=== PATIENT | female | born 1985 | race Caucasian/White ===

== ENCOUNTER → 2017-05-08 | Outpatient (CLI) | payer BC ==
--- NOTE | 2017-05-08 14:13 | US ---
EXAMINATION TYPE: US transvaginal DATE OF EXAM: 05/08/2017 COMPARISON: OB US 2012 CLINICAL HISTORY: N94.6 DYSMENORRHEA, N52.6. Patient c/o midline pelvic pain with intercourse x 6 mon ths: TECHNIQUE: Transvaginal (TV) Date of LMP: 04/09/2017 EXAM MEASUREMENTS: Uterus: 9.2 x 6.0 x 4.8 cm Endometrial Stripe: 2.0 cm Right Ovary: 3.2 x 2.6 x 2.0 cm Left Ovary: 2.6 x 1.9 x 1.3 cm 1. Uterus: Anteverted 2. Endometrium: thickness is wnl for day 30LMP 3. Right Ovary: multiple follicles with largest as complex involuting cyst = 1.6 x 1.1 x 2.2cm 4. Left Ovary: multiple small follicles Spectral, color and waveform Doppler imaging shows good arterial and venous flow within the ovaries . 5. Bilateral Adnexa: wnl 6. Posterior cul-de-sac: wnl Uterus is heterogeneous in appearance. Endometrium is thickened up to 20 mm near the fundus which is abnormal even for late secretory phase of menstrual cycle. No free fluid is seen in pelvis. Both ovaries are identified. Multiple peripheral follicles are seen. No concerning extraovarian adnex al masses are present. IMPRESSION: Abnormal thickening of endometrium consider hyperplasia or polyp. Consider further invest igation with short-term ultrasound follow-up or saline infused hysterosonogram evaluation.
== END | disposition home or self-care (01) ==
LOC: RADUSWWP 12:43
PROVIDERS: ATTEND Family Medicine
DX: R93.8 Abnormal findings on diagnostic imaging of other specified body structures (principal)
CPT/HCPCS: 76830

== ENCOUNTER → 2018-10-25 | Outpatient (CLI) | payer BC ==
--- NOTE | 2018-10-31 09:02 | USB ---
Reason for exam: follow-up at short interval from prior study. History: Family history of breast cancer in paternal grandmother at age 40. Physical Findings: Nurse did not find any significant physical abnormalities on exam. US Breast RT Right complete breast ultrasound includes all four quadrants, the retroareolar region and axilla. Finding demonstrates a 0.5 x 0.5 x 0.5cm mixed lesion at 12 o'clock possible complicated cyst for which a 6 month follow up is recommended, a 0.5 x 0.3 x 0.4cm cystic lesion at 7 o'clock but now slighly irregular, previously 4 x 3 x 4mm, additional 6 month follow up recommended and a 0.8 x 0.3 x 0.7cm cystic, benign lesion at 8 o'clock. These results were verbally communicated with the patient and result sheet given to the patient on 10/30/18. ASSESSMENT: Probably benign, BI-RAD 3 RECOMMENDATION: Ultrasound of the right breast in 6 months.
== END | disposition home or self-care (01) ==
LOC: RADMAMWWP 07:41
PROVIDERS: ATTEND Family Medicine
DX: R92.8 Other abnormal and inconclusive findings on diagnostic imaging of breast (principal)

== ENCOUNTER → 2019-02-14 | Outpatient (CLI) | payer BC ==
--- NOTE | 2019-02-18 08:06 | USB ---
Reason for exam: clinical finding. History: Family history of breast cancer in paternal grandmother at age 40. Physical Findings: Nurse did not find any significant physical abnormalities on exam. US Breast RT Right complete breast ultrasound includes all four quadrants, the retroareolar region and axilla. Finding demonstrates three cystic, benign lesions measuring 0.3 x 0.2 x 0.2cm at 12 o'clock, 0.6 x 0.6 x 0.4cm at 7 o'clock and 0.6 x 1.0 x 0.4cm at 8 o'clock. These results were verbally communicated with the patient and result sheet given to the patient on 02/14/19. ASSESSMENT: Benign, BI-RAD 2 RECOMMENDATION: Routine screening mammogram of both breasts at age 40. (or sooner if clinically indicated)
== END | disposition home or self-care (01) ==
LOC: RADUSWWP 14:25
PROVIDERS: ATTEND Family Medicine
DX: N63.10 Unspecified lump in the right breast, unspecified quadrant (principal)

== ENCOUNTER 2021-01-12 12:05 | Emergency (ER) | payer BC ==
[2021-01-12 12:14] VITALS: RESP 16
[2021-01-12] MEDS ORDERED: SODIUM CHLORIDE 0.9% 1,000 ML IV STA (12:18)
--- NOTE | 2021-01-12 12:19 | ED ---
Abdominal Pain HPI - General Chief Complaint: Abdominal Pain Stated Complaint: Abd Pain Time Seen by Provider: 01/12/21 12:10 Source: patient Mode of arrival: EMS Limitations: no limitations - History of Present Illness Initial Comments: 35-year-old previously healthy female who presents to emergency room with reported abdominal pain. Patient did have some abdominal pain approximately one week ago however it did not last very long. Reports that the pain started again today around 10 AM. Denies any provocative factors. Located periumbilical and in the right lower quadrant. Denies previous history of abdominal surgeries. No changes in her urination to include dysuria, hematuria or difficulty voiding. No melanic stools or hematochezia. No constipation or diarrhea. Last menstrual cycle was on December 31. Denies concern for . No abnormal vaginal bleeding or discharge. Pain does radiate through to back. Did not take any medications for her symptoms. Does admit to nausea. Did have some vomiting a week ago. No sick contacts. No other alleviating, precipitating or modifying factors - Related Data Allergies Allergy/AdvReac Type Severity Reaction Status Date / Time sulfamethoxazole Allergy Rash/Hives Verified 01/12/21 12:14 [From Bactrim] trimethoprim [From Bactrim] Allergy Rash/Hives Verified 01/12/21 12:14 Review of Systems ROS Statement: Those systems with pertinent positive or pertinent negative responses have been documented in the HPI. ROS Other: All systems not noted in ROS Statement are negative. Past Medical History Past Medical History: No Reported History History of Any Multi-Drug Resistant Organisms: None Reported Past Surgical History: No Surgical Hx Reported Past Psychological History: No Psychological Hx Reported Smoking Status: Never smoker Past Alcohol Use History: Occasional Past Drug Use History: None Reported General Exam Limitations: no limitations General appearance: alert, in no apparent distress Head exam: Present: atraumatic, normocephalic, normal inspection Eye exam: Present: normal appearance, PERRL, EOMI. Absent: scleral icterus, conjunctival injection, periorbital swelling ENT exam: Present: normal exam, mucous membranes moist Neck exam: Present: normal inspection. Absent: tenderness, meningismus, lymphadenopathy Respiratory exam: Present: normal lung sounds bilaterally. Absent: respiratory distress, wheezes, rales, rhonchi, stridor Cardiovascular Exam: Present: regular rate, normal rhythm, normal heart sounds. Absent: systolic murmur, diastolic murmur, rubs, gallop, clicks GI/Abdominal exam: Present: soft, tenderness (right lower quadrant), normal bowel sounds. Absent: distended, guarding, rebound, rigid Extremities exam: Present: normal inspection, full ROM, normal capillary refill. Absent: tenderness, pedal edema, joint swelling, calf tenderness Back exam: Present: normal inspection Neurological exam: Present: alert, oriented X3, CN II-XII intact Psychiatric exam: Present: normal affect, normal mood Skin exam: Present: warm, dry, intact, normal color. Absent: rash Course Vital Signs 01/12/21 01/12/21 01/12/21 12:08 12:23 14:45 Temperature 97.1 F L 97.5 F L Pulse Rate 72 72 Respiratory 16 16 Rate Blood Pressure 129/88 117/63 O2 Sat by Pulse 100 98 Oximetry Medical Decision Making - Medical Decision Making Upon arrival patient is placed in room 16. A thorough history and physical exam is performed. Patient reports minimal pain at this time. I did recommend laboratory studies and a CT of her abdomen and pelvis. Laboratory studies are reviewed and are all within normal range. Trace blood in the urine. CT of abdomen and pelvis does demonstrate multiple renal calculi bilaterally. The patient also has a 2.7 cm right ovarian cyst. These results are discussed with the patient. I did offer pelvic ultrasound however patient refused at this time. Patient will be discharged home to follow up with PCP within 2-4 days. Did further recommend testing to include vaginal us, gallbladder us and HIDA scan if pain persists. Return to the emergency room for any new or worsening symptoms. Patient was discharged home in stable condition - Lab Data Result diagrams: 01/12/21 12:24 01/12/21 12:24 Lab Results 01/12/21 01/12/21 01/12/21 Range/Units 12:24 12:24 12:24 WBC 9.2 (3.8-10.6) k/uL RBC 4.62 (3.80-5.40) m/uL Hgb 14.0 (11.4-16.0) gm/dL Hct 41.5 (34.0-46.0) % MCV 89.9 (80.0-100.0) fL MCH 30.4 (25.0-35.0) pg MCHC 33.8 (31.0-37.0) g/dL RDW 12.2 (11.5-15.5) % Plt Count 212 (150-450) k/uL MPV 8.1 Neutrophils % 77 % Lymphocytes % 14 % Monocytes % 6 % Eosinophils % 2 % Basophils % 0 % Neutrophils # 7.1 (1.3-7.7) k/uL Lymphocytes # 1.3 (1.0-4.8) k/uL Monocytes # 0.5 (0-1.0) k/uL Eosinophils # 0.2 (0-0.7) k/uL Basophils # 0.0 (0-0.2) k/uL Sodium 135 L (137-145) mmol/L Potassium 4.1 (3.5-5.1) mmol/L Chloride 102 (98-107) mmol/L Carbon Dioxide 26 (22-30) mmol/L Anion Gap 7 mmol/L BUN 17 (7-17) mg/dL Creatinine 0.59 (0.52-1.04) mg/dL Est GFR (CKD-EPI)AfAm >90 (>60 ml/min/1.73 sqM) Est GFR (CKD-EPI)NonAf >90 (>60 ml/min/1.73 sqM) Glucose 105 H (74-99) mg/dL Calcium 9.0 (8.4-10.2) mg/dL Total Bilirubin 0.6 (0.2-1.3) mg/dL AST 24 (14-36) U/L ALT 14 (4-34) U/L Alkaline Phosphatase 42 (38-126) U/L Total Protein 6.6 (6.3-8.2) g/dL Albumin 4.1 (3.5-5.0) g/dL Lipase 223 (23-300) U/L Urine Color Light Yellow Urine Appearance Clear (Clear) Urine pH 6.0 (5.0-8.0) Ur Specific Moran 1.015 (1.001-1.035) Urine Protein Negative (Negative) Urine Glucose (UA) Negative (Negative) Urine Ketones 1+ H (Negative) Urine Blood Trace H (Negative) Urine Nitrite Negative (Negative) Urine Bilirubin Negative (Negative) Urine Urobilinogen <2.0 (<2.0) mg/dL Ur Leukocyte Esterase Negative (Negative) Urine RBC 1 (0-5) /hpf Urine WBC 2 (0-5) /hpf Ur Squamous Epith Cells 2 (0-4) /hpf Urine Mucus Rare H (None) /hpf Urine HCG, Qual (Not Detectd) 01/12/21 Range/Units 12:24 WBC (3.8-10.6) k/uL RBC (3.80-5.40) m/uL Hgb (11.4-16.0) gm/dL Hct (34.0-46.0) % MCV (80.0-100.0) fL MCH (25.0-35.0) pg MCHC (31.0-37.0) g/dL RDW (11.5-15.5) % Plt Count (150-450) k/uL MPV Neutrophils % % Lymphocytes % % Monocytes % % Eosinophils % % Basophils % % Neutrophils # (1.3-7.7) k/uL Lymphocytes # (1.0-4.8) k/uL Monocytes # (0-1.0) k/uL Eosinophils # (0-0.7) k/uL Basophils # (0-0.2) k/uL Sodium (137-145) mmol/L Potassium (3.5-5.1) mmol/L Chloride (98-107) mmol/L Carbon Dioxide (22-30) mmol/L Anion Gap mmol/L BUN (7-17) mg/dL Creatinine (0.52-1.04) mg/dL Est GFR (CKD-EPI)AfAm (>60 ml/min/1.73 sqM) Est GFR (CKD-EPI)NonAf (>60 ml/min/1.73 sqM) Glucose (74-99) mg/dL Calcium (8.4-10.2) mg/dL Total Bilirubin (0.2-1.3) mg/dL AST (14-36) U/L ALT (4-34) U/L Alkaline Phosphatase (38-126) U/L Total Protein (6.3-8.2) g/dL Albumin (3.5-5.0) g/dL Lipase (23-300) U/L Urine Color Urine Appearance (Clear) Urine pH (5.0-8.0) Ur Specific Moran (1.001-1.035) Urine Protein (Negative) Urine Glucose (UA) (Negative) Urine Ketones (Negative) Urine Blood (Negative) Urine Nitrite (Negative) Urine Bilirubin (Negative) Urine Urobilinogen (<2.0) mg/dL Ur Leukocyte Esterase (Negative) Urine RBC (0-5) /hpf Urine WBC (0-5) /hpf Ur Squamous Epith Cells (0-4) /hpf Urine Mucus (None) /hpf Urine HCG, Qual Not Detected (Not Detectd) Disposition Clinical Impression: Abdominal pain Disposition: HOME SELF-CARE Condition: Stable Instructions (If sedation given, give patient instructions): Abdominal Pain (ED) Additional Instructions: Please follow-up with your primary care doctor within 2-4 days. If your pain continues, you may consider a pelvic ultrasound, gallbladder ultrasound and possible HIDA scan. Take Motrin or Tylenol for pain control. Return to the emergency room for any new or worsening symptoms Is patient prescribed a controlled substance at d/c from ED?: No Referrals: Marcel Marin III, MD [Primary Care Provider] - 1-2 days Time of Disposition: 14:42
[2021-01-12 12:23] VITALS: PULSE 72
[2021-01-12 12:46] LABS: Basophils % (A) 0 %; Eosinophils # (A) 0.2 k/uL (0-0.7); Eosinophils % (A) 2 %; HCT 41.5 % (34.0-46.0); Lymphocytes # (A) 1.3 k/uL (1.0-4.8); Lymphocytes % (A) 14 %; MCH 30.4 pg (25.0-35.0); MCHC 33.8 g/dL (31.0-37.0); MCV 89.9 fL (80.0-100.0); Mean Platelet Volume 8.1; Monocytes # (A) 0.5 k/uL (0-1.0); Monocytes % (A) 6 %; Neutrophils # (A) 7.1 k/uL (1.3-7.7); Neutrophils % (A) 77 %; Platelet Count 212 k/uL (150-450); RBC 4.62 m/uL (3.80-5.40); RDW 12.2 % (11.5-15.5); WBC 9.2 k/uL (3.8-10.6)
[2021-01-12 13:07] LABS: ALT 14 U/L (4-34); AST 24 U/L (14-36); African American GFR (CKD) >90 (>60 ml/min/1.73 sqM); Albumin 4.1 g/dL (3.5-5.0); Alkaline Phosphatase 42 U/L (38-126); Anion Gap 7 mmol/L; Blood Urea Nitrogen 17 mg/dL (7-17); Carbon Dioxide 26 mmol/L (22-30); Chloride 102 mmol/L (98-107); Glucose 105 mg/dL (74-99); Lipase 223 U/L (23-300); Non-African American GFR(CKD) >90 (>60 ml/min/1.73 sqM); Potassium 4.1 mmol/L (3.5-5.1); Sodium 135 mmol/L (137-145); Total Bilirubin 0.6 mg/dL (0.2-1.3); Total Protein 6.6 g/dL (6.3-8.2)
[2021-01-12 13:17] LABS: Appearance,Urine Clear (Clear); Bilirubin,Urine Negative (Negative); Blood,Urine Trace (Negative); Color,Urine Light Yellow; Glucose,Urine (UA) Negative (Negative); Ketones,Urine 1+ (Negative); Leukocyte Esterase,Urine Negative (Negative); Mucus,Urine Rare /hpf; Nitrite,Urine Negative (Negative); Protein,Urine Negative (Negative); RBC,Urine 1 /hpf (0-5); Specific Gravity,Urine 1.015 (1.001-1.035); Squamous Epithelial Cell,Urine 2 /hpf (0-4); Urobilinogen,Urine <2.0 mg/dL (<2.0); WBC,Urine 2 /hpf (0-5)
--- NOTE | 2021-01-12 14:05 | CT ---
EXAMINATION TYPE: CT abdomen pelvis w con DATE OF EXAM: 01/12/2021 HISTORY: RLQ pain CT DLP: 745.5mGycm Automated Exposure Control for Dose Reduction was Utilized. CONTRAST: CT scan of the abdomen and pelvis is performed without oral but with IV Contrast, patient injected wi th 100 mL of Isovue 300. COMPARISON: None. FINDINGS: LUNG BASES: No significant abnormality is appreciated. LIVER/GB: No significant abnormality is appreciated. PANCREAS: No significant abnormality is seen. SPLEEN: No significant abnormality is seen. ADRENALS: No significant abnormality is seen. KIDNEYS: There are 2 small scattered nonobstructing left renal calculi measuring 2 to 3 mm in size. T here are 2 scattered right sided renal calculi including the largest 5 mm calculus midpole level reyes nal image 65. There is symmetric cortical medullary uptake and excretion without concerning renal mas s or hydronephrosis seen bilaterally. BOWEL: Normal-appearing appendix seen best coronal images 53 through 59 ascending from cecum. Evaluat ion of the bowel is slightly suboptimal as patient has little intra-abdominal fat and oral contrast w as not given. No suspicious small or large bowel dilatation. UTERUS/ADNEXA: Anteverted uterus. There is 2.7 cm oval low dense lesion right pelvis favoring simple small ovarian cyst image 69. This can be confirmed with pelvic ultrasound if desired. LYMPH NODES: No greater than 1cm abdominal or pelvic lymph nodes are appreciated. OSSEOUS STRUCTURES: No significant abnormality is seen. OTHER: No significant additional abnormality is seen. IMPRESSION: No CT evidence for acute appendicitis. Small bilateral renal calculi without hydronephros is or obstructing ureteral calculi bilaterally. There is 2.7 cm low dense oval right ovarian lesion f avoring simple small ovarian cyst.
[2021-01-12 14:52] VITALS: BP 117/63; TEMP 97.5
== END 2021-01-12 14:50 | disposition home or self-care (01) ==
LOC: EC 12:05
DX: R10.31 Right lower quadrant pain (principal)
CPT/HCPCS: 96360; 96361 ×2; 99284 ×2; 96376; 36415; 80053; 83690; 85025; 81001; 81025; 74177; Q9967